=== PATIENT | female | born 1970 | race Caucasian/White ===

== ENCOUNTER 2017-03-15 11:15 | Emergency (ER) | payer SELFPAY ==
[2017-03-15] MEDS ORDERED: FAMOTIDINE INJ/PF 20 MG/2 ML SDV IV ONE (11:58)
[2017-03-15] MEDS ORDERED: METHYLPREDNISOLONE INJ 125 MG/2 ML SDV IV ONE (11:58)
--- NOTE | 2017-03-15 12:00 | ER Document Report ---
HPI - HPI Patient complains to provider of: insect sting Onset: This morning - 9:30 Onset/Duration: Sudden Quality of pain: Burning Pain Level: 2 Context: Patient states that she was trimming hedges and got stung by a flying insect to her left hand. Patient complains of pain, swelling and redness to her left hand. Patient does state that in the past she has had an allergic reaction in which she stopped breathing after an insect sting. Patient does not have an EpiPen at home. Patient does states she took Benadryl 2 tablets right after the sting occurred. Patient denies any difficulty breathing, nausea, or lightheadedness. Associated Symptoms: Other - hand pain/swelling Exacerbated by: Movement Relieved by: Denies Similar symptoms previously: Yes Recently seen / treated by doctor: No - ROS ROS below otherwise negative: Yes Systems Reviewed and Negative: Yes All other systems reviewed and negative - CONSTITUTIONAL Constitutional: DENIES: Fever - EENT EENT: DENIES: Sore Throat, Congestion - CARDIOVASCULAR Cardiovascular: DENIES: Chest pain - RESPIRATORY Respiratory: DENIES: Trouble Breathing, Coughing - GASTROINTESTINAL Gastrointestinal: DENIES: Nausea, Patient vomiting - MUSCULOSKELETAL Musculoskeletal: REPORTS: Extremity pain, Swelling - DERM Skin Color: Erythema Past Medical History - General Information source: Patient - Social History Smoking Status: Never Smoker Frequency of alcohol use: None Drug Abuse: None Occupation: side jobs Lives with: Spouse/Significant other Family History: Reviewed & Not Pertinent - Medical History Medical History: Negative Renal/ Medical History: Denies: Hx Peritoneal Dialysis Surgical Hx: Negative Vertical Provider Document - CONSTITUTIONAL Agree With Documented VS: Yes Exam Limitations: No Limitations - INFECTION CONTROL TRAVEL OUTSIDE OF THE [place] IN LAST 30 DAYS: No - HEENT HEENT: Atraumatic, Normal ENT Exam, Normocephalic Notes: no angioedema, no potential airway compromise - NECK Neck: Normal Inspection, Supple. negative: Lymphadenopathy-Left, Lymphadenopathy-Right - RESPIRATORY Respiratory: Breath Sounds Normal, No Respiratory Distress O2 Sat by Pulse Oximetry: 100 - CARDIOVASCULAR Cardiovascular: Regular Rate, Regular Rhythm, No Murmur - BACK Back: Normal Inspection - MUSCULOSKELETAL/EXTREMETIES Musculoskeletal/Extremeties: MAEW, Tender - Left thumb tenderness, left hand 2+ edema, Edema - NEURO Level of Consciousness: Awake, Alert, Appropriate Motor/Sensory: No Motor Deficit - DERM Integumentary: Warm, Dry Notes: Erythema to left hand extending to the volar aspect of left wrist Course - Re-evaluation Re-evalutation: 03/15/17 13:26 No increase in swelling. Inflammation seems to be improving, redness has decreased. No difficulty breathing. Pain continues with 2+ edema. Discussed worsening signs or symptoms that patient should return immediately for. Patient verbalized understanding and agrees with plan of care 03/15/17 13:28 The patient has been informed that they may have pre-hypertension or hypertension based on a blood pressure reading in the emergency department. I recommend that patient call the primary care provider listed on their discharge instructions or a physician of their choice by this week to arrange follow-up for further evaluation of possible pre-hypertension or hypertension. - Vital Signs Vital signs: Temp Pulse Resp BP Pulse Ox 98.5 F 80 16 146/76 H 100 03/15/17 11:19 03/15/17 11:19 03/15/17 11:19 03/15/17 11:19 03/15/17 11:19 Discharge - Discharge Clinical Impression: Elevated blood pressure reading Insect sting Qualifiers: Encounter type: initial encounter Injury intent: undetermined intent Qualified Code(s): T63.484A - Toxic effect of venom of other arthropod, undetermined, initial encounter Condition: Stable Disposition: HOME, SELF-CARE Instructions: Swollen Insect Bite or Sting ([facility]), Steroid Medication, Use of Diphenhydramine Additional Instructions: Return immediately for any new or worsening symptoms Followup with your primary care provider, call tomorrow to make a followup appointment Continue to take Benadryl [id number] as directed to help with your symptoms Keep hand elevated to help decrease swelling Prescriptions: Epinephrine [Epipen 2-Levi] 0.3 mg IM ASDIR PRN #1 unit PRN Reason: Famotidine [Pepcid 20 mg Tablet] 20 mg PO BID #12 tablet Prednisone [Deltasone 20 mg Tablet] 3 tab PO DAILY 4 Days Forms: Elevated Blood Pressure Referrals: [facility] [Provider Group] - Follow up as needed
[2017-03-15 14:06] VITALS: BP 121/60
== END 2017-03-15 14:02 | disposition home or self-care (01) ==
LOC: ER 11:15
DX: T63.484A Toxic effect of venom of other arthropod, undetermined, initial encounter (principal); Y92.009 Unspecified place in unspecified non-institutional (private) residence as the place of occurrence of the external cause; R03.0 Elevated blood-pressure reading, without diagnosis of hypertension
CPT/HCPCS: 99281; 96374; 96375; J2930; S0028